=== PATIENT | female | born 1945 ===

== ENCOUNTER 2020-06-20 05:35 | Day surgery (SDC) | payer OTHER ==
[~2020-06-20 05:35] MED LIST: COZAAR100 MG PO; HYDROCHLOROTHIA25 MG PO; METFORMIN HCL500 M3 PO
== END 2020-06-20 18:10 | disposition home or self-care (01) ==
LOC: CIR.AMB 05:35 → EDSTATUS 12:30 → CIR.AMB 12:30 → SURH 12:30 → CIR.AMB 18:10
PROVIDERS: ATTEND Obstetrics & Gynecology Gynecologic Oncology
DX: C51.8 Malignant neoplasm of overlapping sites of vulva (principal); Z20.822 Contact with and (suspected) exposure to COVID-19

== ENCOUNTER 2021-12-25 05:17 | Day surgery (SDC) | payer OTHER ==
[~2021-12-25] VITALS: Ht 149.9 cm; Wt 59.0 kg
[~2021-12-25 05:17] MED LIST changes: +LIPITOR40 MG PO
[2021-12-25] MEDS ORDERED: TRAZODONE HCL50 MG (08:03)
[2021-12-25] MEDS ORDERED: PANTOPRAZOLE SO40 MG (08:03)
== END 2021-12-25 14:10 | disposition home or self-care (01) ==
LOC: O/R 05:17 → CIR.AMB 05:17 → SURH 05:17 → EDSTATUS 08:15 → O/R 14:10 → CIR.AMB 14:10
PROVIDERS: ATTEND Obstetrics & Gynecology Gynecologic Oncology
DX: C51.9 Malignant neoplasm of vulva, unspecified (principal); R87.622 Low grade squamous intraepithelial lesion on cytologic smear of vagina (LGSIL); A63.0 Anogenital (venereal) warts; I10 Essential (primary) hypertension; E11.9 Type 2 diabetes mellitus without complications; Z91.013 Allergy to seafood; Z88.6 Allergy status to analgesic agent